=== PATIENT | female | born 1970 | race Caucasian/White ===

== ENCOUNTER 2016-12-19 11:07 | Outpatient (CLI) ==
[2013-02-25 08:37] VITALS: BMI 36.0
--- NOTE | 2016-12-19 11:52 | CT ---
EXAM: CT Head HISTORY: Syncope COMPARISON: Nine TECHNIQUE: CT head performed without contrast FINDINGS: There is no mass effect, midline shift, or intracranial hemmorhage. Saldivar white different iation is preserved. There is no extra-axial collection. The ventricles, sulci, and basal cisterns are patent and symmetric. There is no depressed calvarial fracture. The mastoid air cells are sherry ar. Mucosal thickening left maxillary sinus with fluid level. IMPRESSION: 1. No acute intracranial abnormality. 2. Left maxillary sinusitis with fluid level, likely acute on chronic sinusitis
== END 2016-12-19 11:08 | disposition home or self-care (01) ==
LOC: RAD 11:07
PROVIDERS: ATTEND Nurse Practitioner Family
DX: R55 Syncope and collapse (principal)

== ENCOUNTER 2017-04-03 10:34 | Outpatient (CLI) ==
[2013-02-25 08:37] VITALS: BMI 36.0
--- NOTE | 2017-04-03 11:52 | CT ---
EXAM: CT ABDOMEN AND PELVIS HISTORY: Right lower quadrant abdominal pain TECHNIQUE: CT abdomen and pelvis without intravenous contrast. Images were reconstructed using 5 mm section thickness. Reformations were prepared. COMPARISON: 02/25/2013 FINDINGS: Elongated right hepatic lobe measuring about 24 cm. This may in part be related to normal anatomic v ariation of the lobe length as the left lobe is relatively small. Hepatomegaly could also be conside red. There is at least mild fatty infiltration of the liver. No focal hepatic or splenic lesions. Gallbladder has been removed. Pancreas and adrenal glands appear normal. There is a punctate calcification within the left kidney measuring around 0.25 cm consistent with a c alculus. Both ureters are clear. The right kidney has two relatively large calculi, staghorn like a nd a few small stones. The largest right-sided calculus measures 1.67 x 2.26 x 1.01 cm. The other c alculus which is located superiorly measures approximately 1.21 x 1.67 x 1.71 cm. There is no hydron ephrosis. There is subtle right perinephric fat stranding. Minimal atherosclerotic disease. A few prominent periaortic lymph nodes are nonspecific and stable. There is no gastric distension. What may represent a short appendix has no evidence of inflammation. Bowel gas pattern is nonobstructive. There is either a small uterus present or a prominent vaginal cuff. Urinary bladder appears normal. There is no ascites. Ventral abdominal wall is intact. The bones reveal moderate degenerative disc and facet disease of the lower spine. Lung bases are clear. No pneumoperitoneum. IMPRESSION: 1. Bilateral nephrolithiasis as described in the middle paragraph of report, staghorn like on the ri ght. There is no hydronephrosis or evidence of ureteral obstruction although there is mild right per inephric fat stranding. Correlate for any evidence of renal parenchymal or collecting system infecti on. 2. Elongated right hepatic lobe. Hepatic steatosis.
== END 2017-04-03 10:35 | disposition home or self-care (01) ==
LOC: RAD 10:34
PROVIDERS: ATTEND Nurse Practitioner
DX: R10.31 Right lower quadrant pain (principal)

== ENCOUNTER 2018-04-09 09:35 | Outpatient (CLI) ==
[2013-02-25 08:37] VITALS: BMI 36.0
--- NOTE | 2018-04-09 10:34 | MAMMO ---
EXAM: Bilateral digital diagnostic mammogram (2-D and 3-D) History: Left breast cancer, follow-up Comparison: Bilateral mammogram 03/19/2017 Findings: MLO and CC views of bilateral breasts demonstrate scattered fibroglandular breast parenchy ma. Postsurgical changes again seen within the left breast. CAD was reviewed by the radiologist. T omosynthesis was performed. Stable benign bilateral breast calcifications. There are no dominant ma sses, no suspicious microcalcifications and no architectural distortions. Impression: Benign stable mammogram. Recommend followup routine screening mammography in 1 year. BIRADS 2
== END 2018-04-09 09:36 | disposition home or self-care (01) ==
LOC: RAD 09:35
PROVIDERS: ATTEND Internal Medicine Hematology & Oncology
DX: Z85.3 Personal history of malignant neoplasm of breast (principal)

== ENCOUNTER 2019-01-06 12:39 | Outpatient (CLI) ==
[2013-02-25 08:37] VITALS: BMI 36.0
--- NOTE | 2019-01-06 13:29 | CT ---
EXAM: CT of the abdomen pelvis without contrast History: Left flank pain. Comparison: CT abdomen pelvis 04/03/2017 Technique: Multiplanar CT images through the abdomen pelvis were obtained without the administration of IV contrast Findings: Lung bases are free of consolidation. No acute osseous abnormalities. Moderate to severe degenerative disc disease at L4-L5 and severe degenerative disc disease at L5-S1. Severe bilateral b soco neural foraminal narrowing at L5-S1 secondary to ligamentous and facet hypertrophy. Status post cholecystectomy. The liver is enlarged. Spleen is unremarkable. No focal liver or sple austen lesions identified within limitations of a noncontrast study. Atherosclerotic vascular calcifica tions. No peripancreatic inflammation. Adrenal glands are unremarkable. Bilateral renal calculi me asuring up to 5 mm on the left and 7 mm in the right renal pelvis. No ureteral calculi and no hydron ephrosis. No perinephric inflammation. No bowel obstruction. No bladder wall thickening. No free air and no ascites. The appendix is normal. Uterus is not seen and likely has been surgically remov ed. No abdominal aortic aneurysm. No pathologically enlarged lymph nodes. No inflammatory strandin g. Impression: 1. No acute intra-abdominal or pelvic process. 2. Nonobstructing bilateral nephrolithiasis. 3. Hepatomegaly. 4. Severe degenerative changes in the lower lumbar spine
== END 2019-01-06 12:40 | disposition home or self-care (01) ==
LOC: RAD 12:39
PROVIDERS: ATTEND Physician Assistant
DX: R10.32 Left lower quadrant pain (principal)